=== PATIENT | female | born 1990 | race African-American/Black ===

== ENCOUNTER 2025-02-01 18:18 | Inpatient (IN) | payer MEDICARE ==
[~2025-02-01] VITALS: Ht 154.9 cm; Wt 48.1 kg
[2025-02-01 11:20] VITALS: BP 135/78; TEMP 97.3; O2SAT 100
[2025-02-01 19:05] LABS: BASOPHILS % (AUTO) 0.9 % (0.0-2.0); EOSINOPHILS # (AUTO) 0.1 K/uL (0.0-0.7); EOSINOPHILS % (AUTO) 2.1 % (0.0-6.0); HEMATOCRIT 30 % (33-45); HEMOGLOBIN 9.5 g/dL (11.5-14.8); LYMPHOCYTES # (AUTO) 3.2 K/uL (0.8-4.8); LYMPHOCYTES % (AUTO) 58.4 % (20.0-44.0); MEAN CORPUSCULAR HEMOGLOBIN 22 PG (26.0-33.0); MEAN CORPUSCULAR HGB CONC 32 g/dl (31.0-36.0); MEAN CORPUSCULAR VOLUME 71 fL (82-100); MONOCYTES # (AUTO) 0.3 K/uL (0.1-1.30); MONOCYTES % (AUTO) 5.4 % (2.0-12.0); NEUTROPHILS # (AUTO) 1.8 K/uL (1.8-8.9); NEUTROPHILS % (AUTO) 33.2 % (43.0-81.0); PLATELET COUNT (AUTO) 402 K/uL (150-450); RED BLOOD CELL COUNT(AUTO) 4.25 MIL/uL (4.0-5.2); RED CELL DISTRIBUTION WIDTH 18.8 % (11.5-15.0); WHITE BLOOD COUNT (AUTO) 5.5 K/uL (4.3-11.0)
[2025-02-01 19:17] LABS: CARBON DIOXIDE 31 mmol/L (21-32); CHLORIDE 102 mmol/L (98-107); SODIUM SERUM 140 mmol/L (136-145)
[2025-02-01 19:18] LABS: CALCIUM, SERUM 9.1 mg/dL (8.5-10.1); CREATININE 1.3 mg/dL (0.6-1.3); GLUCOSE 110 mg/dL (74-106); UREA NITROGEN, BLOOD 34 mg/dL (7-18)
[2025-02-01 19:19] LABS: ALBUMIN 3.7 g/dL (3.4-5.0)
[2025-02-01 19:20] LABS: ALCOHOL, BLOOD < 3 mg/dL (0-10); SALICYLATE < 2.8 mg/dL (2.8-20.0)
[2025-02-01 19:24] LABS: ACETAMINOPHEN <10 ug/ml (10-30); ALANINE AMINOTRANSFERASE 31 U/L (12-78); ALKALINE PHOSPHATASE 83 U/L (46-116); ASPARTATE AMINOTRANSFERASE 34 U/L (15-37); BILIRUBIN,DIRECT 0.1 mg/dL (0.0-0.2); BILIRUBIN,TOTAL 0.3 mg/dL (0.2-1.0); TOTAL PROTEIN, SERUM 7.3 g/dL (6.4-8.2)
[2025-02-01 19:26] LABS: POTASSIUM 2.7 mmol/L (3.5-5.1)
[2025-02-01] MEDS: IV NS 0.9% 1,000 ML BAG IV ONE (20:02)
[2025-02-01] MEDS ORDERED: POTASSIUM CL. PREMIX PERIPHER. 200 ML ONE (20:11)
[2025-02-01] MEDS: POTASSIUM CL. PREMIX PERIPHER. 50 ML IV SCH ×2 (20:18→21:19)
[2025-02-01 20:49] LABS: APPEARANCE,URINE CLOUDY (CLEAR); BILIRUBIN,URINE NEGATIVE (NEGATIVE); BLOOD, URINE 1+ Ery/uL (NEGATIVE); COLOR,URINE YELLOW (YELLOW); KETONES,URINE NEGATIVE (NEGATIVE); LEUKOCYTE ESTERASE ,URINE 1+ (NEGATIVE); NITRITE, URINE NEGATIVE (NEGATIVE); PROTEIN,URINE 2+ mg/dl (NEGATIVE); UGLUCOSE NEGATIVE (NEGATIVE); UROBILINOGEN,URINE 0.2 EU/dL (0.2)
[2025-02-01] MEDS ORDERED: OLANZAPINE 10 MG VIAL IM ONE (21:07)
[2025-02-01] MEDS: OLANZAPINE 10 MG VIAL IM ONE (21:10)
[2025-02-01] MEDS ORDERED: Magnesium 1GM/D5W 100ML PREMIX 100 ML IV ONE (21:14)
[2025-02-01 21:15] LABS: BARBITURATE, URINE NEGATIVE (NEGATIVE); COCCAINE, URINE NEGATIVE (NEGATIVE); OPIATE, URINE NEGATIVE (NEGATIVE); PHENCYCLIDINE SCREEN,URINE NEGATIVE (NEGATIVE)
[2025-02-01] MEDS: Magnesium 1GM/D5W 100ML PREMIX PIGGYBACK IV ONE (21:15)
[2025-02-01 21:18] LABS: AMPHETAMINE, URINE POSITIVE (NEGATIVE); BENZODIAZEPINE, URINE POSITIVE (NEGATIVE); CANNABINOID, URINE POSITIVE (NEGATIVE)
[2025-02-01] MEDS ORDERED: Magnesium 1 GM/2 ML VIAL IV ONE (21:30)
[2025-02-01 22:11] LABS: ADD URINE CULTURE YES; BACTERIA,URINE 2+ /HPF (None Seen); URINE AMORPHOUS URATE Few /HPF (None Seen)
[2025-02-01] MEDS: CEFTRIAXONE 1GM BAG (ER ONLY) 1 GM/50 ML PIGGYBACK IV ONE (22:20)
[2025-02-01] MEDS: ENOXAPARIN SODIUM 40 MG/0.4 ML DISP.SYRIN SQ SCH (22:30)
[2025-02-01] MEDS ORDERED: MAGNESIUM HYDROXIDE 30 ML UDC PO PRN (22:30)
[2025-02-01] MEDS ORDERED: ZOLPIDEM TARTRATE 5 MG TABLET PO PRN (22:30)
[2025-02-01] MEDS ORDERED: MAG HYDROX/AL HYDROX/SIMETH 30 ML UDC PO PRN (22:30)
[2025-02-01 23:30] LABS: LYMPHOCYTES % (MANUAL) 44 % (16-48); MONOCYTES % (MANUAL) 6 % (0-11.0); NEUTROPHILS % (MANUAL) 50 (42-76); PLATELET ESTIMATE ADEQUATE
[2025-02-01 23:31] LABS: ANISOCYTOSIS 1+; TARGET CELLS FEW
[2025-02-02] VITALS: BP 135/78; TEMP 97.3; O2SAT 100
[2025-02-02 00:33] LABS: HEMOGLOBIN 9.9 g/dL (11.5-14.8)
[2025-02-02] MEDS: IV NS 0.9% 1,000 ML IV PRN (00:37)
[2025-02-02 04:00] VITALS: BP 135/84; TEMP 97.7; O2SAT 100
[2025-02-02 07:21] LABS: PREGNANCY TEST URINE QUAL NEGATIVE (NEGATIVE)
[2025-02-02] MEDS: PANTOPRAZOLE 40 MG TABLET.DR PO SCH (08:29)
[2025-02-02] MEDS: ONDANSETRON HCL/PF 4 MG/2 ML VIAL IVP PRN (08:29)
[2025-02-02] MEDS: ACETAMINOPHEN 325 MG TABLET PO PRN (08:29)
[2025-02-02 09:42] LABS: CALCIUM, SERUM 8.7 mg/dL (8.5-10.1); CREATININE 0.7 mg/dL (0.6-1.3); MAGNESIUM 1.8 mg/dL (1.8-2.4); PHOSPHORUS 2.5 mg/dL (2.5-4.9)
[2025-02-02 09:55] LABS: THYROID STIMULATING HORMONE 0.58 uIU/mL (0.358-3.74)
[2025-02-02 10:41] LABS: BASOPHILS % (AUTO) 0.6 % (0.0-2.0); EOSINOPHILS # (AUTO) 0.2 K/uL (0.0-0.7); EOSINOPHILS % (AUTO) 2.7 % (0.0-6.0); HEMATOCRIT 34 % (33-45); HEMOGLOBIN 10.5 g/dL (11.5-14.8); LYMPHOCYTES # (AUTO) 1.5 K/uL (0.8-4.8); LYMPHOCYTES % (AUTO) 25.3 % (20.0-44.0); MEAN CORPUSCULAR HEMOGLOBIN 22 PG (26.0-33.0); MEAN CORPUSCULAR HGB CONC 31 g/dl (31.0-36.0); MEAN CORPUSCULAR VOLUME 72 fL (82-100); MONOCYTES # (AUTO) 0.6 K/uL (0.1-1.30); MONOCYTES % (AUTO) 9.5 % (2.0-12.0); NEUTROPHILS # (AUTO) 3.7 K/uL (1.8-8.9); NEUTROPHILS % (AUTO) 61.9 % (43.0-81.0); PLATELET COUNT (AUTO) 424 K/uL (150-450); RED CELL DISTRIBUTION WIDTH 19.4 % (11.5-15.0)
[2025-02-02] MEDS ORDERED: OLANZAPINE 10 MG VIAL IM PRN (12:30)
[2025-02-02] MEDS ORDERED: BENZTROPINE MESYLATE (2MG/2ML) 2 MG/2 ML AMPUL IM PRN (12:30)
[2025-02-02] MEDS ORDERED: BENZTROPINE MESYLATE (1 MG) 1 MG TABLET PO PRN (12:30)
[2025-02-02] MEDS: POTASSIUM CHLORIDE 10 MEQ TABLET.SA PO ONE (13:27)
[2025-02-02] MEDS: OLANZAPINE 10 MG VIAL IM ONE (13:27)
[2025-02-02] MEDS: BENZTROPINE MESYLATE (1 MG) 1 MG TABLET PO SCH (13:34)
[2025-02-02] MEDS ORDERED: OLANZAPINE 2.5 MG TABLET PO SCH (17:00)
[2025-02-02 20:00] VITALS: BP 132/89; TEMP 98.1; O2SAT 100
[2025-02-02] MEDS ORDERED: CEFTRIAXONE 1 G in IV D5W 50 ML IV SCH (20:00)
[2025-02-02] MEDS: OLANZAPINE 2.5 MG TABLET PO SCH (22:10)
[2025-02-02] MEDS: CEFTRIAXONE 1 G in IV D5W 50 ML IV SCH (22:17)
[2025-02-02 23:24] VITALS: BP 132/89; TEMP 98.1; O2SAT 100
[2025-02-03] VITALS: BP 122/80; TEMP 98.4; O2SAT 98
[2025-02-03 04:00] VITALS: BP 126/86; TEMP 98; O2SAT 99
[2025-02-03 07:40] LABS: BASOPHILS % (AUTO) 0.6 % (0.0-2.0); EOSINOPHILS # (AUTO) 0.2 K/uL (0.0-0.7); EOSINOPHILS % (AUTO) 2.8 % (0.0-6.0); HEMATOCRIT 31 % (33-45); HEMOGLOBIN 9.9 g/dL (11.5-14.8); LYMPHOCYTES # (AUTO) 2.6 K/uL (0.8-4.8); LYMPHOCYTES % (AUTO) 43.2 % (20.0-44.0); MEAN CORPUSCULAR HEMOGLOBIN 23 PG (26.0-33.0); MEAN CORPUSCULAR HGB CONC 32 g/dl (31.0-36.0); MEAN CORPUSCULAR VOLUME 71 fL (82-100); MONOCYTES # (AUTO) 0.5 K/uL (0.1-1.30); MONOCYTES % (AUTO) 8.5 % (2.0-12.0); NEUTROPHILS # (AUTO) 2.7 K/uL (1.8-8.9); NEUTROPHILS % (AUTO) 44.9 % (43.0-81.0); PLATELET COUNT (AUTO) 438 K/uL (150-450); RED BLOOD CELL COUNT(AUTO) 4.37 MIL/uL (4.0-5.2); RED CELL DISTRIBUTION WIDTH 19.5 % (11.5-15.0)
[2025-02-03 08:00] VITALS: BP 130/93; TEMP 98.3; O2SAT 100
[2025-02-03] MEDS: OLANZAPINE 2.5 MG TABLET PO SCH (08:13)
[2025-02-03 08:22] LABS: CALCIUM, SERUM 8.5 mg/dL (8.5-10.1); CREATININE 0.7 mg/dL (0.6-1.3); MAGNESIUM 1.7 mg/dL (1.8-2.4); PHOSPHORUS 2.5 mg/dL (2.5-4.9); POTASSIUM 3.1 mmol/L (3.5-5.1)
[2025-02-03] MEDS ORDERED: POTASSIUM CHLORIDE 20 MEQ TAB.PRT.SR PO SCH (10:00)
[2025-02-03] MEDS: MAGNESIUM OXIDE 400 MG TABLET PO ONE (10:21)
[2025-02-03] MEDS: POTASSIUM CHLORIDE 20 MEQ POWDER PACKET PO SCH (10:21)
[2025-02-03 18:31] LABS: THYROID STIMULATING HORMONE 0.42 uIU/mL (0.358-3.74)
[2025-02-03 20:00] VITALS: BP 133/85; TEMP 98.5; O2SAT 97
[2025-02-04 11:05] LABS: CALCIUM, SERUM 8.8 mg/dL (8.5-10.1); CREATININE 0.6 mg/dL (0.6-1.3); MAGNESIUM 1.6 mg/dL (1.8-2.4); POTASSIUM 3.5 mmol/L (3.5-5.1)
[2025-02-04] MEDS ORDERED: BENZ1TAB7 PO (13:42)
[2025-02-04] MEDS ORDERED: Olanzapine PO (13:42)
[2025-02-04] MEDS ORDERED: CIPR-263 PO (13:42)
[2025-02-04] MEDS ORDERED: CIPROFLOXACIN HCL 250 MG TABLET PO SCH (21:00)
[2025-02-05 08:07] LABS: FOLIC ACID 10.5 ng/mL (>3.0)
== END 2025-02-04 17:11 | DRG 640 ==
LOC: EDBD 18:22 → ER 18:22 → TELE 22:27
PROVIDERS: ADMIT Nurse Practitioner Family; ATTEND Nurse Practitioner Acute Care
DX: E87.6 Hypokalemia (principal); G92.8 Other toxic encephalopathy; N39.0 Urinary tract infection, site not specified; Z59.00 Homelessness unspecified; Z20.822 Contact with and (suspected) exposure to COVID-19; B96.89 Other specified bacterial agents as the cause of diseases classified elsewhere; F19.10 Other psychoactive substance abuse, uncomplicated; D64.9 Anemia, unspecified; R79.89 Other specified abnormal findings of blood chemistry; F20.9 Schizophrenia, unspecified; Z79.899 Other long term (current) drug therapy; R41.0 Disorientation, unspecified
CPT/HCPCS: 36415; 76700-TC; 80048-TC; 80076-TC; 81001; 82607-TC; 83735-TC; 83921; 84100-TC; 84425; 84443-TC; 84703-TC; 85025-TC; 85027-TC; 87081-TC; A4223; G0378; G0480; J0696; J1650; J2405; J3475; J3480; J3490; J7030; J7060